=== PATIENT | female | born 1995 | race Caucasian/White ===

== ENCOUNTER 2021-04-26 10:05 | Emergency (ER) | payer MEDICAID ==
[~2021-04-26] VITALS: Ht 172.7 cm; Wt 100.0 kg
[2021-04-26] MEDS ORDERED: IBUP-2029 MT (11:36)
[2021-04-26] MEDS ORDERED: ACETAMINOPHEN 325MG TABLET PO ONE (11:45)
[2021-04-26] MEDS ORDERED: IBUPROFEN 600MG TABLET PO ONE (11:45)
[2021-04-26] MEDS ORDERED: CYCLOBENZAPRINE 10MG TABLET PO ONE (12:15)
[2021-04-26] MEDS ORDERED: CYCL10TA7 MT (12:18)
[2021-04-26 12:34] VITALS: BP 95/71
== END 2021-04-26 12:41 | disposition home or self-care (01) ==
LOC: ER 10:21
DX: S09.8XXA Other specified injuries of head, initial encounter (principal); M54.2 Cervicalgia; W10.8XXA Fall (on) (from) other stairs and steps, initial encounter; Y93.01 Activity, walking, marching and hiking; Y92.89 Other specified places as the place of occurrence of the external cause
CPT/HCPCS: 93005; 99284

== ENCOUNTER 2023-09-15 10:09 | Emergency (ER) | payer MEDICAID ==
[~2023-09-15] VITALS: Ht 172.7 cm; Wt 116.0 kg
[~2023-09-15 10:09] MED LIST: CYCL10TA21 MT; IBUP-2029 MT
[2023-09-15 10:16] VITALS: O2SAT 99
[2023-09-15 11:11] LABS: EOSINOPHILS % 2.5 % (0.0-5.0); HEMATOCRIT. 38.9 % (36.0-48.0); LYMPHOCYTES % 29.6 % (20.0-50.0); MEAN CORPUSCULAR HEMOGLOBIN 27.1 pg (28.0-32.0); MEAN CORPUSCULAR HGB CONC 33.5 g/dL (31.0-37.0); MEAN CORPUSCULAR VOLUME 80.8 fL (81.0-99.0); MONOCYTES % 4.4 % (2.0-8.0); NEUTROPHILS % 62.5 % (40.0-76.0); PLATELET 484 x1000/uL (130-400); RED BLOOD CELL COUNT 4.81 mill/uL (4.2-5.4); RED CELL DISTRIBUTION WIDTH 14.1 % (11.6-14.6); WHITE BLOOD COUNT 9.1 x1000/uL (4.5-11.0)
[2023-09-15 11:24] LABS: ALANINE AMINOTRANSFERASE 13 IU/L (10-49); ALBUMIN 4.4 g/dL (3.2-4.8); ASPARTATE AMINOTRANSFERASE 13 IU/L (<34); BILIRUBIN TOTAL 0.4 mg/dL (0.1-1.0); CALCIUM 8.8 mg/dL (8.7-10.4); CARBON DIOXIDE 25 mEq/L (21-32); CHLORIDE 107 mEq/L (98-107); CREATININE 0.9 mg/dL (0.6-1.0); GLUCOSE 93 mg/dL (70-105); POTASSIUM 4.3 mEq/L (3.5-5.1); PROTEIN TOTAL 7.9 g/dL (6.0-8.3); SODIUM 138 mEq/L (136-145); UREA NITROGEN BLOOD 8 mg/dL (9-23)
[2023-09-15 11:38] LABS: B-HCG QUANTITATIVE 1 mIU/mL (<3)
[2023-09-15 13:07] LABS: CLARITY URINE CLOUDY (CLEAR); COLOR URINE RED (YELLOW); GLUCOSE URINE NEGATIVE (NEGATIVE); KETONES URINE NEGATIVE (NEGATIVE); LEUKOCYTE ESTERASE URINE 1+ (NEGATIVE); NITRITE URINE NEGATIVE (NEGATIVE); OCCULT BLOOD URINE 3+ (NEGATIVE); PH URINE 7.5 (4.5-8.0); PROTEIN URINE 1+ (NEGATIVE); SPECIFIC GRAVITY URINE 1.008 (1.005-1.030); UROBILINOGEN URINE 0.2 E.U./dL (0.2-1.0)
[2023-09-15 13:46] LABS: BACTERIA URINE TRACE; RBC URINE TNTC /hpf (0-2); SQUAMOUS EPITHELIAL CELL URINE 1+ /lpf (RARE/1+); YEAST URINE NONE SEEN
[2023-09-15 14:37] VITALS: BP 110/63; PULSE 82; RESP 20; TEMP 98.3
== END 2023-09-15 14:52 | disposition home or self-care (01) ==
LOC: ER 10:09
DX: O03.9 Complete or unspecified spontaneous abortion without complication (principal); Z3A.01 Less than 8 weeks gestation of pregnancy
CPT/HCPCS: 36415; 76830; 76856; 80053; 81003; 81025; 84702; 85025; 86850; 86900; 99284